=== PATIENT | male | born 1945 | race Two or more races ===

== ENCOUNTER 2016-06-25 10:26 | Inpatient (IN) | payer OTHER ==
--- NOTE | 2016-06-25 10:46 | CPEKG ---
Heart Rate: 130 RR Interval: 462 P-R Interval: 108 QRSD Interval: 86 QT Interval: 320 QTC Interval: 471 P [place]: 148 QRS [place]: -17 T Wave [place]: 42 EKG Severity - BORDERLINE ECG - EKG Impression: ATRIAL FLUTTER WITH 2:1 BLOCK EKG Impression: BORDERLINE LEFT AXIS DEVIATION EKG Impression: BORDERLINE ST DEPRESSION, INFERIOR LEADS Electronically Signed By: David Lechuga 25-Jun-2016 14:14:26
[2016-06-25] MEDS ORDERED: NS 1,000 ML IV ONE (11:09)
[2016-06-25 11:18] LABS: % IMMATURE GRANULYOCYTES 0.5 % (0.0-1.1); ABSOLUTE IMMATURE GRANULOCYTES 0.03 10^3/uL (0.00-0.10); ADD DIFF? NO; ADD MORPH? NO; ADD SCAN? NO; ATYPICAL LYMPHOCYTE FLAG 20 (0-99); FRAGMENT RBC FLAG 0 (0-99); HEMATOCRIT 44.9 % (40.0-51.0); HEMOGLOBIN 15.2 g/dL (13.7-17.5); LEFT SHIFT FLG 0 (0-99); LIPEMIA HEMOLYSIS FLAG 90 (0-99); MEAN CELL HEMOGLOBIN 30.8 pg (27.9-34.1); MEAN CELL HEMOGLOBIN CONCENTR. 33.9 g/dL (32.4-36.7); MEAN CELL VOLUME 90.9 fL (81.5-99.8); MEAN PLATELET VOLUME 8.3 fL (8.7-11.7); PLATELET CLUMPS FLAG 0 (0-99); PLATELET COUNT 406 10^3/uL (150-400); RED BLOOD CELL COUNT 4.94 10^6/uL (4.40-6.38); RED CELL DISTRIBUTION WIDTH 12.7 % (11.5-15.2)
--- NOTE | 2016-06-25 11:20 | UCPHY ---
H & P Patient Type: New Time Seen by Provider: 06/25/16 10:51 HPI/ROS: Chief Complaint: Syncope, rapid heart rate HPI: 71-year-old male with no significant medical problems is being sent in from his doctor for a rapid heart rate. Patient states that he has been feeling unwell for a couple weeks. Was diagnosed with strep throat 10 days ago and was prescribed amoxicillin. He has been feeling better but yesterday was feeling weak. States he had 3-4 episodes where he "blacked out" with a complete loss of consciousness. He went to see his physician today was noted to be in a narrow complex tachycardia rate of 130. Patient denies any chest pain, shortness of breath or palpitations. States that he feels fine right now. No nausea or vomiting. No fevers or chills. No cough. Denies past medical history. Takes no medications. No allergies to medications. Does drink coffee multiple cups daily. Did also drink 2 beers last night. ROS: 10 point Review of Systems is negative except as noted in the HPI. PMH: None Past medical history: None Medications: No known drug allergies Social History: No smoking, occasional alcohol, no recreational drug use Family History: non-contributory Physical Exam: Gen: Awake, Alert, No Distress HEENT: Nose: no rhinorrhea Eyes: PERRLA, EOMI Mouth: Moist mucosa Neck: Supple, no JVD Chest: nontender, lungs clear to auscultation Heart: S1, S2 normal, tachycardic, regular Abd: Soft, non-tender, no guarding Back: no CVA tenderness, no midline tenderness Ext: no edema, non-tender Skin: no rash Neuro: CN II-XII intact, Sensation grossly intact, Strength 5/5 in bilateral upper and lower extremities - Family History Significant Family History: No pertinent family hx Constitutional: Initial Vital Signs Temperature (C) 37 C 06/25/16 10:30 Heart Rate 131 H 06/25/16 10:30 Respiratory Rate 16 06/25/16 10:30 Blood Pressure 119/86 H 06/25/16 10:30 O2 Sat (%) 91 L 06/25/16 10:30 O2 Delivery Mode Room Air Allergies/Adverse Reactions: No Known Allergies Allergy (Unverified 06/25/16 11:23) Home Medications: Medication Instructions Recorded NK [No Known Home Meds] 06/25/16 Medical Decision Making - Diagnostics EKG Interpretation: ECG time:10:44 narrow complex regular tachycardia with a rate of 130. There appear to be P-waves with a rate of 250 which march out in leads V1, V2, lead 3. Normal axis. Mild ST depression in lateral leads. Impression: Atrial flutter with a 2-1 block. Imaging: Chest x-ray: Impression: 1. Early or impending CHF. 2. COPD 3. Likely a benign right pulmonary nodule. If there are any old outside chest x- rays, we would be happy to review them. If not, recommend follow-up chest x-ray in one year to ensure stability. Dictated By: Keith Gomez MD ED Course/Re-evaluation: Patient's electrolytes are okay. ECG shows atrial flutter with a 2-1 av block. Patient's blood pressure is fine. Is currently without complaints. I have discussed Elin Delgado, hospitalist. They will be happy to admit the patient to the PCU once he is rate controlled. Patient will be admitted under Dr. Merino. Patient will need to be transferred to the ER where they can affectively rate control on prior to admission. I have discussed with Dr. Wolf, ED physician. He will accept the patient transfer to the ED where they will rate control. Once this is achieved patient will be admitted to the PCU. - Data Points Laboratory Results: Laboratory Results 06/25/16 10:50 06/25/16 10:50 06/25/16 06/25/16 06/25/16 10:50 10:50 10:50 WBC 6.48 10^3/uL 10^3/uL (3.80-9.50) RBC 4.94 10^6/uL 10^6/uL (4.40-6.38) Hgb 15.2 g/dL g/dL (13.7-17.5) Hct 44.9 % % (40.0-51.0) MCV 90.9 fL fL (81.5-99.8) MCH 30.8 pg pg (27.9-34.1) MCHC 33.9 g/dL g/dL (32.4-36.7) RDW 12.7 % % (11.5-15.2) Plt Count 406 10^3/uL H 10^3/uL (150-400) MPV 8.3 fL L fL (8.7-11.7) Neut % (Auto) 54.1 % % (39.3-74.2) Lymph % (Auto) 31.2 % % (15.0-45.0) [place] % (Auto) 11.0 % % (4.5-13.0) Eos % (Auto) 2.3 % % (0.6-7.6) Baso % (Auto) 0.9 % % (0.3-1.7) Nucleat RBC Rel Count 0.0 % % (0.0-0.2) Absolute Neuts (auto) 3.51 10^3/uL 10^3/uL (1.70-6.50) Absolute Lymphs (auto) 2.02 10^3/uL 10^3/uL (1.00-3.00) Absolute Monos (auto) 0.71 10^3/uL 10^3/uL (0.30-0.80) Absolute Eos (auto) 0.15 10^3/uL 10^3/uL (0.03-0.40) Absolute Basos (auto) 0.06 10^3/uL 10^3/uL (0.02-0.10) Absolute Nucleated RBC 0.00 10^3/uL 10^3/uL (0-0.01) Immature Gran % 0.5 % % (0.0-1.1) Immature Gran # 0.03 10^3/uL 10^3/uL (0.00-0.10) D-Dimer 0.45 ug/mLFEU ug/mLFEU (0.00-0.50) Sodium 141 mEq/L mEq/L (134-144) Potassium 4.5 mEq/L mEq/L (3.5-5.2) Chloride 105 mEq/L mEq/L (97-110) Carbon Dioxide 21 mEq/l L mEq/l (22-31) Anion Gap 15 mEq/L mEq/L (8-16) BUN 12 mg/dL mg/dL (7-23) Creatinine 0.8 mg/dL mg/dL (0.7-1.3) Estimated GFR > 60 Glucose 78 mg/dL mg/dL (70-100) Calcium 9.0 mg/dL mg/dL (8.5-10.4) Total Bilirubin 0.5 mg/dL mg/dL (0.1-1.4) Conjugated Bilirubin 0.3 mg/dL mg/dL (0.0-0.5) Unconjugated Bilirubin 0.2 mg/dL mg/dL (0.0-1.1) AST 20 IU/L IU/L (17-59) ALT 29 IU/L IU/L (21-72) Alkaline Phosphatase 59 IU/L IU/L (38-126) Troponin I < 0.012 ng/mL ng/mL (0-0.034) Total Protein 6.4 g/dL g/dL (6.3-8.2) Albumin 3.4 g/dL L g/dL (3.5-5.0) Lipase 86.0 IU/L IU/L (23-300) Medications Given: Discontinued Medications Sodium Chloride (Ns) 1,000 mls @ 0 mls/hr IV ONCE ONE PRN Reason: Wide Open Stop: 06/25/16 11:10 Last Admin: 06/25/16 11:05 Dose: 1,000 mls Diltiazem HCl 125 mg/ Dextrose 125 mls @ 0 mls/hr IV EDNOW ONE; As Directed PRN Reason: Protocol Stop: 06/25/16 13:30 Last Admin: 06/25/16 13:51 Dose: 125 mls Departure - Departure Disposition: [facility] Inpatient Acute Clinical Impression: Atrial flutter, Syncope Condition: Fair - PQRS PQRS Measurement: 134: Depression screening and followup, PRIME MD-PHQ2 (12 years and older) Over the last 2 weeks, how often have you been bothered by any of the following problems? 1. Feeling down, depressed, or hopeless? 2. Little interest or pleasure in doing things? Patient answered no to both 1 and 2 130: Documentation of medications. Reviewed all patient medications, doses, route and frequency. 226: Do you smoke? No. 47: 65 and older: Advanced care planning. Patient designates surrogate decision maker as daughter. 51: 18 years old and older with diagnosis of COPD, spirometry performance. Patient has no history of COPD 52: 18 years old and older with COPD and symptoms of COPD or FEV1<60% predicted prescribed a B Agonist. Spirometry not performed; equipment not available.
[2016-06-25 11:43] LABS: TROPONIN I < 0.012 ng/mL (0-0.034)
[2016-06-25 12:03] LABS: ALANINE AMINOTRANSFERASE 29 IU/L (21-72); ALBUMIN 3.4 g/dL (3.5-5.0); ALKALINE PHOSPHATASE 59 IU/L (38-126); ASPARTATE AMINOTRANSFERASE 20 IU/L (17-59); BILIRUBIN,TOTAL 0.5 mg/dL (0.1-1.4); BILIRUBIN-CONJUGATED 0.3 mg/dL (0.0-0.5); BILIRUBIN-UNCONJUGATED 0.2 mg/dL (0.0-1.1); CARBON DIOXIDE 21 mEq/l (22-31); CHLORIDE 105 mEq/L (97-110); CREATININE 0.8 mg/dL (0.7-1.3); GLOMERULAR FILTRATION RATE > 60; GLUCOSE 78 mg/dL (70-100); SODIUM 141 mEq/L (134-144); TOTAL PROTEIN 6.4 g/dL (6.3-8.2)
[2016-06-25 12:11] LABS: ANION GAP 15 mEq/L (8-16); POTASSIUM 4.5 mEq/L (3.5-5.2)
[2016-06-25] MEDS ORDERED: DILTIAZEM 125 MG in D5W 125 ML IV ONE (13:29)
--- NOTE | 2016-06-25 13:43 | EDPHY ---
H & P Time Seen by Provider: 06/25/16 10:51 HPI/ROS: CHIEF COMPLAINT: Atrial flutter HPI: The patient is a 71-year-old male who was evaluated at the [facility] earlier today. Apparently the patient had several syncopal episodes yesterday while at work. He arrives to [facility] to tachycardic and was found to be in atrial flutter. Patient was transferred to the ER for further workup. On my evaluation, patient denies chest pain or shortness of breath. He denies any trauma. REVIEW OF SYSTEMS: Aside from elements discussed in the HPI, a comprehensive 10-point review of systems was reviewed and is negative. PMH: No known cardiac disease or history of arrhythmia. SOCIAL HISTORY: Patient works in construction. Had a few alcoholic drinks yesterday. PHYSICAL EXAM: General:Patient is alert, in no acute distress. ENT:Eyes are normal to inspection. ENT inspection normal. Neck: Normal inspection. Full range of motion. Respiratory:No respiratory distress. Breath sounds normal bilaterally. Cardiovascular: Tachycardic rate, regular rhythm. Strong peripheral pulses. Abdomen:The abdomen is nontender to palpation. There are no peritoneal signs. There are normal bowel sounds. Back: Normal to inspection. No tenderness to palpation. Skin: Normal color. No rash. Warm and dry. Extremities: Normal appearance. Full range of motion. Neuro: Oriented x3. Normal motor function. Normal sensory function. Smoking Status: Never smoked Constitutional: Initial Vital Signs Temperature (C) 37 C 06/25/16 10:30 Heart Rate 131 H 06/25/16 10:30 Respiratory Rate 16 06/25/16 10:30 Blood Pressure 119/86 H 06/25/16 10:30 O2 Sat (%) 91 L 06/25/16 10:30 O2 Delivery Mode Room Air Allergies/Adverse Reactions: No Known Allergies Allergy (Unverified 06/25/16 11:23) Home Medications: Medication Instructions Recorded NK [No Known Home Meds] 06/25/16 Medical Decision Making ED Course/Re-evaluation: This patient arrives in atrial flutter with a controlled rate of approximately 130 beats per minute. He is having no chest pain and his blood pressure stable. I think his history of multiple syncopal episodes yesterday's concerning and certainly the patient requires admission. I have started diltiazem drip and will defer further workup and treatment to the hospitalist/ cardiology services. - Data Points Laboratory Results: Laboratory Results 06/25/16 10:50 06/25/16 10:50 06/25/16 06/25/16 06/25/16 10:50 10:50 10:50 WBC 6.48 10^3/uL 10^3/uL (3.80-9.50) RBC 4.94 10^6/uL 10^6/uL (4.40-6.38) Hgb 15.2 g/dL g/dL (13.7-17.5) Hct 44.9 % % (40.0-51.0) MCV 90.9 fL fL (81.5-99.8) MCH 30.8 pg pg (27.9-34.1) MCHC 33.9 g/dL g/dL (32.4-36.7) RDW 12.7 % % (11.5-15.2) Plt Count 406 10^3/uL H 10^3/uL (150-400) MPV 8.3 fL L fL (8.7-11.7) Neut % (Auto) 54.1 % % (39.3-74.2) Lymph % (Auto) 31.2 % % (15.0-45.0) [place] % (Auto) 11.0 % % (4.5-13.0) Eos % (Auto) 2.3 % % (0.6-7.6) Baso % (Auto) 0.9 % % (0.3-1.7) Nucleat RBC Rel Count 0.0 % % (0.0-0.2) Absolute Neuts (auto) 3.51 10^3/uL 10^3/uL (1.70-6.50) Absolute Lymphs (auto) 2.02 10^3/uL 10^3/uL (1.00-3.00) Absolute Monos (auto) 0.71 10^3/uL 10^3/uL (0.30-0.80) Absolute Eos (auto) 0.15 10^3/uL 10^3/uL (0.03-0.40) Absolute Basos (auto) 0.06 10^3/uL 10^3/uL (0.02-0.10) Absolute Nucleated RBC 0.00 10^3/uL 10^3/uL (0-0.01) Immature Gran % 0.5 % % (0.0-1.1) Immature Gran # 0.03 10^3/uL 10^3/uL (0.00-0.10) D-Dimer 0.45 ug/mLFEU ug/mLFEU (0.00-0.50) Sodium 141 mEq/L mEq/L (134-144) Potassium 4.5 mEq/L mEq/L (3.5-5.2) Chloride 105 mEq/L mEq/L (97-110) Carbon Dioxide 21 mEq/l L mEq/l (22-31) Anion Gap 15 mEq/L mEq/L (8-16) BUN 12 mg/dL mg/dL (7-23) Creatinine 0.8 mg/dL mg/dL (0.7-1.3) Estimated GFR > 60 Glucose 78 mg/dL mg/dL (70-100) Calcium 9.0 mg/dL mg/dL (8.5-10.4) Total Bilirubin 0.5 mg/dL mg/dL (0.1-1.4) Conjugated Bilirubin 0.3 mg/dL mg/dL (0.0-0.5) Unconjugated Bilirubin 0.2 mg/dL mg/dL (0.0-1.1) AST 20 IU/L IU/L (17-59) ALT 29 IU/L IU/L (21-72) Alkaline Phosphatase 59 IU/L IU/L (38-126) Troponin I < 0.012 ng/mL ng/mL (0-0.034) Total Protein 6.4 g/dL g/dL (6.3-8.2) Albumin 3.4 g/dL L g/dL (3.5-5.0) Lipase 86.0 IU/L IU/L (23-300) Medications Given: Discontinued Medications Sodium Chloride (Ns) 1,000 mls @ 0 mls/hr IV ONCE ONE PRN Reason: Wide Open Stop: 06/25/16 11:10 Last Admin: 06/25/16 11:05 Dose: 1,000 mls Diltiazem HCl 125 mg/ Dextrose 125 mls @ 0 mls/hr IV EDNOW ONE; As Directed PRN Reason: Protocol Stop: 06/25/16 13:30 Last Admin: 06/25/16 13:51 Dose: 125 mls Departure - Departure Disposition: [facility] Inpatient Acute Clinical Impression: Atrial flutter, Syncope Condition: Fair
[2016-06-25] MEDS ORDERED: DILTIAZEM 25 MG/5 ML VIAL IVP ONE (15:30)
[2016-06-25] MEDS ORDERED: ONDANSETRON 4 MG/2 ML VIAL IVP PRN (15:54)
[2016-06-25] MEDS ORDERED: oxyCODONE IR 5 MG TAB PO PRN (15:54)
[2016-06-25] MEDS ORDERED: TEMAZEPAM 15 MG CAP PO PRN (15:54)
[2016-06-25] MEDS ORDERED: ONDANSETRON DISINTEGRATING 4 MG TAB PO PRN (15:54)
[2016-06-25] MEDS ORDERED: ACETAMINOPHEN 325 MG TAB PO PRN (15:54)
[2016-06-25] MEDS ORDERED: ENOXAPARIN 60 MG/0.6 ML SYR SC SCH (16:00)
--- NOTE | 2016-06-25 16:37 | ECHO ---
[id number] + + [address] : : [place] [address] : : [phone] + + Adult Echocardiographic Report + --------+ :Name: NEFTALY ACEVES Juan Date: 06/25/2016 03:46 PM BP: 106/60 mm Hg : : Hospital Admission Number: [id number] Locat ion: 201: :: 1945 Gender: Male Height: 67 in : :Age: 71 yrs Race: [facility] Weight: 155 l b : :Reason For Study: atrial flutter : : BSA: 1.8 mete rs2 : :History: Aflutter;syncope;strep infection : + --------+ MMode/2D Measurements \T\ Calculations IVSd: 0.89 cm RVDd: 4.5 cm FS: 13.5 % Ao root diam: LVPWd: 1.0 cm LVIDd: 4.8 cm EDV(Teich): 4.0 cm LVIDs: 4.1 cm 105.6 ml LA dimension: ESV(Teich): 4.3 cm 75.1 ml EF(Teich): 28.9 % LVLd ap4: 9.0 cm SV(MOD-sp4): EDV(MOD-sp4): 55.0 ml 157.0 ml LVLs ap4: 8.0 cm ESV(MOD-sp4): 102.0 ml EF(MOD-sp4): 35.0 % Normal Measurement Values: + + :LVIDd (3.5-5.7cm) IVSd (0.6-1.1cm) LVPWd (0.6-1.1cm) Aortic Root (2.0-3.7cm)Left Atrium (1.5-4.0cm): :LV Vol(d) (76-115ml) LV Vol(s) (29-48ml) Ejec Fraction (50-65%)PV Abdoul (0.6- 1.2m/s) TV Abdoul (0.4-1.0m/s) : :MV E Abdoul (0.8-1.0m/s)MV A Abdoul (0.3-1.0m/s)LVOT Abdoul (0.7-1.2m/s) Asc Ao Abdoul ( 0.9-1.8m/s) : + + Doppler Measurements \T\ Calculations Ao V2 max: AI max abdoul: LV V1 max: PA V2 max: 122.7 cm/sec 386.1 cm/sec 107.1 cm/sec 84.7 cm/sec Ao max P.0 mmHgAI max P.6 mmHg LV V1 max PG: PA max PG: AI dec slope: 4.6 mmHg 3.0 mmHg 111.1 cm/sec2 AI P1/2t: 1018 msec TR max abdoul: 262.8 cm/sec TR max P.6 mmHg RAP systole: 5.0 mmHg RVSP(TR): 32.6 mmHg Left Ventricle The left ventricle is normal in size. There is normal left ventricular wall thickness. Left ventricular systolic function is mild to moderately reduced. Ejection Fraction = 35-40%. There is mild to moderate global hypokinesis of the left ventricle. Right Ventricle The right ventricle is mildly dilated. The right ventricular systolic function is borderline reduced. Atria The left atrium is borderline dilated. The right atrium is borderline dilated. The atrial septum is aneurysmal. A patent foramen ovale is suspected. Mitral Valve The mitral valve is normal in structure and function. There is no mitral valve stenosis. There is mild mitral regurgitation. Tricuspid Valve The tricuspid valve is normal in structure and function. There is no tricuspid stenosis. There is mild tricuspid regurgitation. Right ventricular systolic pressure is 33mmHg. Aortic Valve The aortic valve is trileaflet. There is no aortic stenosis. Mild aortic regurgitation. Pulmonic Valve The pulmonic valve is normal in structure and function. Mild pulmonic valvular regurgitation. Great Vessels The aortic root is normal size. Pericardium/Pleural There is no pericardial effusion. Conclusion A two-dimensional transthoracic echocardiogram with M-mode and Doppler was performed. The left ventricle is normal in size. Left ventricular systolic function is mild to moderately reduced. Ejection Fraction = 35-40%. There is mild to moderate global hypokinesis of the left ventricle. The right ventricle is mildly dilated. The right ventricular systolic function is borderline reduced. The left atrium is borderline dilated. The right atrium is borderline dilated. The atrial septum is aneurysmal. A patent foramen ovale is suspected. There is mild mitral regurgitation. There is mild tricuspid regurgitation. Right ventricular systolic pressure is 33mmHg. Mild aortic regurgitation. Mild pulmonic valvular regurgitation. Final Reading Physician: Ekta Estrada signed on 06/25/2016 04:36 PM Ordering Physician: Katrina Chen Performed By: Allison Patrick
--- NOTE | 2016-06-25 16:43 | GHP ---
[f rep st] HISTORY AND PHYSICAL DATE OF ADMISSION: 06/25/2016 CHIEF COMPLAINT: Presyncopal symptoms. HISTORY OF PRESENT ILLNESS: The patient is a 71-year-old male, who reports no significant past medical history other than a recent strep throat illness, who presents to the emergency department via his primary care office with an elevated heart rate. He recently returned from [facility] a couple of weeks ago. He then developed fevers and sore throat with a productive cough. A week into these symptoms, he sought care at the [facility], where he was diagnosed with strep throat and treated with amoxicillin. He took 1 week of the amoxicillin but continued to feel poorly. He has had 3 separate episodes of severe presyncopal symptoms, where he suddenly feels lightheaded and dizzy, as if he may pass out. He has not actually lost consciousness. These episodes last approximately 1 minute, and they are not associated with chest pain, shortness of breath, or heart palpitations. However, he has had decreased energy, and upon evaluation by his primary care physician today, he was found to have a heart rate of 130 and was sent to Urgent Care. In Urgent Care, his EKG appeared consistent with a 2:1 A flutter. He was sent to the emergency department, where he was then admitted to the hospital after being placed on an IV diltiazem drip. Upon my evaluation, the patient denies headaches, dizziness, lightheadedness, chest pain, or shortness of breath or palpitations. He also denies any abdominal pain, nausea, vomiting, diarrhea, or changes in his bowel or bladder habits. His fevers and sore throat have mostly resolved. He is left with a lingering cough but overall feels fairly well. PAST MEDICAL HISTORY: Recent strep throat. SURGICAL HISTORY: None. MEDICATIONS: None. ALLERGIES: None. SOCIAL HISTORY: The patient lives independently with his . He is a nonsmoker but has a 51-dayy-wlmg tobacco history. He quit approximately 25 years ago. He reports daily alcohol, 3 to 4 beers in the evening, though he has gone several weeks without alcohol recently due to his illness. He denies any history of alcohol withdrawal symptoms. FAMILY HISTORY: Reviewed, is noncontributory. REVIEW OF SYSTEMS: A 10-point review of systems was performed and is negative except as per HPI. OBJECTIVE: VITAL SIGNS: Temperature is 36.7, blood pressure 113/81, heart rate 131, although by the end of my interview, his heart rate is down into the 80s after receiving an IV diltiazem bolus, respiratory rate 17, he is 95% on room air. GENERAL: The patient is awake, alert, oriented, in no acute distress. HEENT: Head is atraumatic, normocephalic. Pupils equal, round, reactive to light. Extraocular muscles are intact. Oropharynx is clear. Mucous members are moist. NECK: Supple. There is no JVD. HEART: Auscultates to a bigeminy-type rhythm, though is irregular without murmur. LUNGS: Clear to auscultation bilaterally. ABDOMEN: Soft, nondistended, nontender. Normoactive bowel sounds. EXTREMITIES: Without cyanosis, clubbing , or edema. NEUROLOGIC: Grossly nonfocal. EKG: EKG from the Urgent Care is consistent with A flutter with 2:1 block, some mild ST depression in the lateral leads. IMAGING: Chest x-ray is personally reviewed, shows findings consistent possibly with early heart failure. Lung swanson are hyperexpanded. His right costophrenic angle appears clear. His left costophrenic angle is obscured and not in full field of view. His heart size appears relatively normal. Radiology also notes a benign right pulmonary nodule. LABORATORY DATA: CBC reveals a platelet count of 406. D-dimer is negative. Troponin is negative. Complete metabolic panel shows normal electrolytes though CO2 is slightly low at 21. LFTs are normal. Lipase is normal. INR is pending. ASSESSMENT AND PLAN: The patient is a 71-year-old male who has been otherwise healthy, save a recent strep throat illness, who presents to the emergency department with elevated heart rate. 1. Atrial flutter. New diagnosis. An echocardiogram is being performed at this time. Will add on TSH and check an INR. His initial troponin is negative. Will trend his troponins. D dimer is negative. He was started on IV diltiazem drip in the ED, though his heart rate was still 130 upon my evaluation. He was given a 10 mg IV diltiazem bolus, and his rate is better controlled. He has a CHADS-VASc score of 1 based on age. He will be anticoagulated with Lovenox for tonight. I discussed the case with Cardiology, who will formally consult. Given his recurrent presyncopal symptoms, if he does not convert, consideration may be given to cardioversion. Will make him NPO at midnight just in case. Continue IV diltiazem drip for now and may be able to transition to oral tomorrow. 2. Presyncopal symptoms. Suspect cardiac etiology. He has had 3 episodes of near-syncope, possibly in the setting of rapid atrial flutter. Query if he may have become hypotensive during these episodes. Monitor on telemetry. The patient may be a candidate for long-term site monitor at discharge. 3. Strep throat. He has completed a 1-week course of amoxicillin, and his symptoms are resolved. He is afebrile here. At this time, no further treatment is indicated. It does not seem like a long enough time course for him to have developed rheumatic heart disease though an echocardiogram is pending. 4. Daily alcohol use. Per the patient's report, he has no history of withdrawal. Will watch for signs and symptoms of withdrawal and initiate CIWA protocol, if indicated. 5. DVT prophylaxis. Patient will be anticoagulated with Lovenox. 6. Code status. Patient is full code. 7. Disposition. Patient admitted to PCU, observation status. If his flutter issues are not resolved by tomorrow, he may need to be changed to inpatient. /[id number]/MODL MTDD
[2016-06-25 17:21] LABS: TROPONIN I < 0.012 ng/mL (0-0.034)
[2016-06-25 17:23] LABS: INR 1.11 (0.83-1.16); PROTIME(PATIENT) 14.2 SEC (12.0-15.0)
[2016-06-25] MEDS: ENOXAPARIN 80 MG/0.8 ML SYR SC SCH (17:42)
[2016-06-25] MEDS ORDERED: DILTIAZEM 125 MG in D5W 125 ML IV SCH (22:30)
[2016-06-26 05:11] LABS: INR 1.09 (0.83-1.16)
[2016-06-26 05:40] LABS: ANION GAP 9 mEq/L (8-16); CALCIUM 8.5 mg/dL (8.5-10.4); CARBON DIOXIDE 23 mEq/l (22-31); CHLORIDE 109 mEq/L (97-110); CREATININE 0.7 mg/dL (0.7-1.3); GLOMERULAR FILTRATION RATE > 60; GLUCOSE 74 mg/dL (70-100); POTASSIUM 4.4 mEq/L (3.5-5.2); SODIUM 141 mEq/L (134-144)
[2016-06-26] MEDS: ENOXAPARIN 80 MG/0.8 ML SYR SC SCH (05:57)
--- NOTE | 2016-06-26 07:56 | CPEKG ---
Heart Rate: 100 RR Interval: 600 QRSD Interval: 96 QT Interval: 420 QTC Interval: 542 QRS [place]: -46 T Wave [place]: 4 EKG Severity - ABNORMAL ECG - EKG Impression: ATRIAL FLUTTER, A-RATE 250 EKG Impression: LEFT AXIS DEVIATION EKG Impression: NONSPECIFIC T ABNORMALITIES, INFERIOR LEADS EKG Impression: BORDERLINE PROLONGED QT INTERVAL EKG Impression: NO SIGNIFICANT CHANGE SINCE JUNE 25, 2016 Electronically Signed By: Ryan Saldivar 26-Jun-2016 08:24:28
--- NOTE | 2016-06-26 09:13 | SOAPPROG ---
SOAP Progress Note Assessment/Plan: Assessment: Cardiology consult performed and dictated. 62 y/o man with near syncope, daily heavy ETOH use found to be in aflutter at 150bpm and LVEF 37%. I suspect his LVEF is down from combination of tachy induced, chronic ETOH use and post viral. No suspicion of obstructive CAD but needs to evaluate for CAD with cardiolite in near future (next 2-4 wks). REC: 1)DAYANA/CV this AM to restore NSR. 2)Eliquis 5mg PO BID 3)Coreg and Lisinopril after convert to NSR 4)probably home tuesday 5)f/u CHF-[place] 6)ETT cardiolite probably as out-pt in next 2-4 wks. 7)eliminate ETOH or decrease to < one beer per day. 06/26/16 09:10 Objective: Vital Signs Temp Pulse Resp BP Pulse Ox 36.8 C 110 H 14 94/56 L 92 06/26/16 07:58 06/26/16 07:58 06/26/16 07:58 06/26/16 07:58 06/26/16 07:58 Laboratory Results 06/26/16 03:46 06/25/16 06/26/16 06/27/16 05:59 05:59 05:59 Intake Total 2355 Output Total 250 Balance 2105 PT 14.0 SEC (12.0-15.0) 06/26/16 03:46 INR 1.09 (0.83-1.16) 06/26/16 03:46 ICD10 Worksheet Patient Problems: Problems Problem Status Onset Atrial flutter Acute Syncope Acute
[2016-06-26] MEDS ORDERED: MIDAZOLAM 2 MG/2 ML VIAL IVP ONE (09:14)
[2016-06-26] MEDS ORDERED: fentaNYL 100 MCG/2 ML INJ IVP ONE (09:14)
[2016-06-26] MEDS ORDERED: NS 500 ML IV ONE (09:14)
[2016-06-26] MEDS ORDERED: PROPOFOL 200 MG/20 ML VIAL IVP ONE (09:14)
[2016-06-26] MEDS ORDERED: PHENYLEPHRINE HCL 100 MCG/ML SYR ONE (10:16)
[2016-06-26] MEDS ORDERED: LIDOCAINE 2% 5 ML SDV ONE (10:16)
[2016-06-26] MEDS ORDERED: PROPOFOL/EMULSION 500 MG/50 ML BOTTLE IV ONE (10:16)
--- NOTE | 2016-06-26 10:19 | HOSPPROG ---
Hospitalist Progress Note Assessment/Plan: 71-year-old healthy man presents with near syncopal symptoms and is found to be in a fib flutter with rapid ventricular response and a cardiomyopathy of unknown duration. He does have a history of alcohol use and recent viral illness which could be contributing to his current symptoms. # AFib/flutter, echocardiogram reviewed and reviewed with Cardiology. Likely multifactorial including possible viral illness, alcohol use and cannot rule out coronary artery disease * DAYANA cardioversion this morning * Adjust medications to include DANIEL-inhibitor and beta-twan * Anticoagulation with Eliquis per Cardiology * Monitor overnight and discharge in a.m. if continues to be stable after cardioversion # syncope likely related to above, monitor # alcohol use. Patient admits to drinking up to 5 drinks per day, discussed alcohol use with patient and he does plan on cutting down. is at the bedside. # patient requiring IV medication to control heart rate as well as new systolic heart failure noted on echocardiogram will need additional midnight stay for medication management and cardioversion. Subjective: Patient new to [place], chart reviewed discussed with Cardiology. His AFib is relatively asymptomatic although he continues to have intermittent episodes of tachycardia. He did have some near-syncope prior to admission. Objective: Vital Signs Temp Pulse Resp BP Pulse Ox 36.8 C 110 H 14 94/56 L 92 06/26/16 07:58 06/26/16 07:58 06/26/16 07:58 06/26/16 07:58 06/26/16 07:58 Laboratory Results 06/26/16 03:46 06/25/16 06/26/16 06/27/16 05:59 05:59 05:59 Intake Total 2355 Output Total 250 Balance 2105 PT 14.0 SEC (12.0-15.0) 06/26/16 03:46 INR 1.09 (0.83-1.16) 06/26/16 03:46 - Physical Exam Constitutional: no apparent distress, not in pain Eyes: PERRL, anicteric sclera, EOMI Ears, Nose, Mouth, Throat: moist mucous membranes, hearing normal, ears appear normal Cardiovascular: irregularly irregular, No edema Respiratory: no respiratory distress, no rales or rhonchi, clear to auscultation Gastrointestinal: normoactive bowel sounds, soft, non-tender abdomen, no palpable masses Genitourinary: no bladder fullness Skin: warm, normal color Musculoskeletal: no muscle tenderness, normal joint ROM Neurologic: AAOx3, sensation intact bilaterally, No facial droop Psychiatric: interacting appropriately, not anxious, not encephalopathic ICD10 Worksheet Patient Problems: Problems Problem Status Onset Atrial flutter Acute Syncope Acute
--- NOTE | 2016-06-26 10:35 | GCON ---
[f rep st] CONSULTATION CARDIOLOGY CONSULT. DATE OF CONSULTATION: 06/26/2016 REASON FOR CONSULTATION: Evaluate gentleman with near syncope and atrial flutter with rapid ventricular rate and new onset systolic heart failure. HISTORY OF PRESENT ILLNESS: I was asked by Dr. Zoey Merino to consult for the above reasons. The patient is a 71 year-old gentleman with no previous cardiac problems. He does drink 4-5 beers a day. He was in his normal state of health until 4 weeks ago, when he was returning from a vacation in [facility], where he got a strep throat URI. He felt his heart racing slightly for the last month. Four days ago, he had an episode of near syncope and tiredness working in his shed. It occurred yesterday again, and he went to the emergency room for evaluation, and was found to be in atrial flutter with a ventricular rate of 150 beats per minute. An echo demonstrated an LVEF of 37% with mild valvular abnormalities and possible PFO. He denies chest pain, PND or orthopnea. He usually can walk 1-2 miles without difficulty, and works manual labor doing cement laying. He does not have a history of hypertension, diabetes, stroke or previous heart failure before this admission. He has had no previous cardiac testing before this admission. PAST MEDICAL HISTORY: New onset atrial flutter, new onset heart failure, and recent URI, possibly strep throat. PAST SURGICAL HISTORY: None. CURRENT MEDICATIONS: Diltiazem drip and Lovenox 70 mg subcu b.i.d. ALLERGIES: No known drug allergies. SOCIAL HISTORY: Patient is . He drinks 4-5 beers per day. He quit tobacco many years ago and has a 20 pack-year smoking history. 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 FAMILY HISTORY: Unremarkable for premature coronary artery disease or heart failure. REVIEW OF SYSTEMS: The patient reports no GI bleed symptoms or TIA symptoms. The rest of 10-point review of systems is negative. PHYSICAL EXAM: VITAL SIGNS: Afebrile, pulse 110, and irregular irregular, consistent with atrial flutter. Blood pressure 94/54, respirations 20. Weight 70.8 kg. GENERAL: A normal appearing gentleman, in no acute distress, without chest pain or using accessory respiratory muscles. NECK: Jugular venous pressure to 7 cm. Carotid pulse 2+ bilaterally with no obvious bruits. No thyromegaly noted. LUNGS: Clear to auscultation bilaterally without rales, rhonchi, or wheezing. HEART: Normal PMI. Irregular regular rhythm with no murmurs or S3. ABDOMINAL: Soft, nontender. No guarding or rebound. No ascites. EXTREMITIES: 2+ peripheral pulses including femoral and pedal pulses. No edema noted. MUSCULOSKELETAL: No scoliosis. NEURO: Normal affect and mood. SKIN: No bleeding or cyanosis. Neck, no nuchal rigidity. EKG: Atrial flutter with nonspecific T-wave flattening. LABS: White count 6.5, hematocrit 45, platelets 406,000, MCV 91. INR 1.09. Sodium 141, potassium 4.4, chloride 109, bicarb 23, BUN 10, creatinine 0.7, glucose 74. Troponin negative. LFTs within normal limits. TSH 1.9. IMPRESSION AND RECOMMENDATION: A 71 year-old gentleman with near syncope and new onset atrial flutter with rapid ventricular rate. He also has new onset left ventricular dysfunction with an EF of 37%. 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 He does not appear to be having unstable angina and he is relatively euvolemic, with no pulmonary edema. PLAN: 1. We will do a DAYANA cardioversion today in attempts to restore normal sinus rhythm. 2. After successfully converting him back to sinus would start on Eliquis 5 mg b.i.d. 3. After converting him back to sinus rhythm, and hopefully with more blood pressure we will try to introduce low-dose beta twan and DANIEL inhibitor. 4. I feel he probably could go home tomorrow, back in sinus rhythm, as long as he is compensated and normotensive. 5. Would do a treadmill Cardiolite stress test as an outpatient in the next 2- 4 weeks to rule out coronary artery disease. 6. I have discussed with him the need for him to cut back significantly on his alcohol use to less than 1 beer per day, ideally no alcohol. He is willing to do this. /[id number]/MODL MTDD
--- NOTE | 2016-06-26 10:52 | PDTEE1 ---
DAYANA Cardioversion Procedure Indications: Other (atrial flutter) Consent: Signed and in Chart Anticoagulation: Lovenox Procedural Details: Pads were placed in anterior-posterior position. DAYANA probe was advanced and standard images obtained. There is no evidence of left atrial or left atrial appendage thrombus. After DAYANA demonstrated no RAMANA thrombus, AP pads used. 200J synchronized shock. Aflutter at 110bpm to sinus bradycardia at 58bpm. BP 95/55 throughout. Synchronized cardioversion attempt #1: 200J Results: Normal sinus rhythm Conclusions: Successful Cardioversion Patient Problems: Problems Problem Status Onset Atrial flutter Acute Syncope Acute
--- NOTE | 2016-06-26 11:09 | CPEKG ---
Heart Rate: 57 RR Interval: 1053 P-R Interval: 184 QRSD Interval: 96 QT Interval: 464 QTC Interval: 452 P [place]: 25 QRS [place]: 36 T Wave [place]: 50 EKG Severity - ABNORMAL ECG - EKG Impression: SINUS RHYTHM EKG Impression: PROBABLE ANTEROSEPTAL INFARCT, AGE INDETERM EKG Impression: Resolution of atrial flutter since June 26, 2016, 5:23 Electronically Signed By: Ryan Saldivar 27-Jun-2016 12:23:42
--- NOTE | 2016-06-26 11:13 | ECHO ---
[id number] + + [address] : : [facility] [address] : : [phone] + Transesophageal Echocardiographic Report + --------+ :Name: NEFTALY ACEVES Juan Date: 06/26/2016 09:51 AM : : Hospital Admission Number: [id number] Locat ion: 201: :: 1945 Gender: Male : :Age: 71 yrs Race: OTH : :Reason For Study: Atrial flutter : + --------+ Atria Injection of contrast documented an interatrial shunt. A patent foramen ovale is present. No thrombus is detected in the left atrial appendage. Mitral Valve There is mild mitral regurgitation. Tricuspid Valve There is trace tricuspid regurgitation. Aortic Valve Mild to moderate aortic regurgitation. Conclusion A 2D transesophageal echocardiogram with color flow Doppler was performed. 1)Mildly reduced LV systolic function with a LVEF of 35-40%. 2)Mild LAE. 3)No clot or thrombus in any of four cardiac chambers in particular LA appendage. PW velocity in RAMANA 50cm/sec. 4)Small left to right shunting PFO with postive IV bubble study. 5)Mild to moderate AI without . Trileaflet aortic valve. 6)Mild MR without MV prolaps. 7)Mild TR and PI noted. 8)Normal size ascending thoracic aorta (3.3cm) with no dissection flap. 9)No valvular vegetations noted. 10)No atheroma in ascending or descending thoracic aorta. Final Reading Physician: Félix Munoz electronically signed on 06/26/2016 11:12 AM Ordering Physician: Zoey Merino Performed By: Félix Munoz
[2016-06-26] MEDS: LISINOPRIL 5 MG TAB PO SCH (12:09)
[2016-06-26] MEDS: CARVEDILOL 3.125 MG TAB PO SCH (17:56)
[2016-06-26] MEDS: APIXABAN 5 MG TAB PO SCH (20:12)
[2016-06-27 03:22] VITALS: TEMP 98.1
[2016-06-27 04:45] LABS: ANION GAP 7 mEq/L (8-16); CALCIUM 8.8 mg/dL (8.5-10.4); CARBON DIOXIDE 22 mEq/l (22-31); CHLORIDE 108 mEq/L (97-110); CREATININE 0.8 mg/dL (0.7-1.3); GLOMERULAR FILTRATION RATE > 60; GLUCOSE 80 mg/dL (70-100); POTASSIUM 4.4 mEq/L (3.5-5.2); SODIUM 137 mEq/L (134-144)
--- NOTE | 2016-06-27 08:39 | SOAPPROG ---
SOAP Progress Note Assessment/Plan: Assessment: 62 y/o man with near syncope, daily heavy ETOH use found to be in aflutter at 150bpm and LVEF 37%. I suspect his LVEF is down from combination of tachy induced, chronic ETOH use and post viral. No suspicion of obstructive CAD but needs to evaluate for CAD with cardiolite in near future (next 2-4 wks). Now s/ p successful DAYANA and CV to NSR. Tolerating low dose Coreg and Lisinopril and appears euvolemic with no angina. REC: 1)okay to discharge home today on current meds. 2)no ETOH at home. 3)f/u CHF-[facility] with ecg in ten days (my office will call him tommorrow to schedule). 4)ETT cardiolite in 3-4 wks as out-pt. Thanks. Will sign off. 06/27/16 08:36 Subjective: overall he feels stronger than yesterday. Ambulated in his hospital room without CP, SAUCEDA or near syncope. No complaints today. Objective: Vital Signs Temp Pulse Resp BP Pulse Ox 36.7 C 77 17 97/70 L 97 06/27/16 03:20 06/27/16 03:20 06/27/16 03:20 06/27/16 03:20 06/27/16 03:20 Laboratory Results 06/27/16 03:14 06/27/16 03:14 06/26/16 06/27/16 06/28/16 05:59 05:59 05:59 Intake Total 840 Balance 840 PT 14.0 SEC (12.0-15.0) 06/26/16 03:46 INR 1.09 (0.83-1.16) 06/26/16 03:46 Physical Exam - Physical Exam General Appearance: alert EENT: normal ENT inspection Neck: non-tender Respiratory: lungs clear Cardiac/Chest: regular rate, rhythm, systolic murmur, No gallop (1/6 XOCHITL heard) , No JVD Peripheral Pulses: 2+: carotid (R), carotid (L), femoral (R), femoral (L), dorsalis-pedis (R), dorsalis-pedis (L) Abdomen: non-tender, No guarding, No splenomegaly, No ascites Skin: warm/dry Extremities: No pedal edema Neuro/Psych: alert ICD10 Worksheet Patient Problems: Problems Problem Status Onset Atrial flutter Acute Syncope Acute
[2016-06-27 09:34] VITALS: BP 108/78; PULSE 70; RESP 16; O2SAT 90
[2016-06-27] MEDS: LISINOPRIL 5 MG TAB PO SCH (10:02)
[2016-06-27] MEDS: CARVEDILOL 3.125 MG TAB PO SCH (10:03)
[2016-06-27] MEDS: APIXABAN 5 MG TAB PO SCH (10:03)
--- NOTE | 2016-06-27 11:08 | GDS ---
[f rep st] DISCHARGE SUMMARY DIAGNOSES: 1. Atrial fibrillation/flutter, status post cardioversion. 2. Syncope likely related to above. 3. History of alcohol use. Patient working on cutting down. 4. New onset left ventricular dysfunction with an ejection fraction of 37%. PROCEDURES DONE: 1. Echocardiogram, normal left ventricular size, left ventricular systolic function reduced to 35% to 40%, mild global hypokinesis of the left ventricle. 2. Transesophageal echocardiography cardioversion. CONSULTATION: Cardiology, Dr. Félix Munoz. HOSPITAL COURSE: The patient is a healthy 71-year-old man who comes in with a few episodes of synco pe after having an upper respiratory illness. On admission, he was found to be in AFib/flutter with a rapid ventricular response and admitted to the hospital for anticoagulation and rate control. Ca rdiology saw him in consultation and after an echocardiogram was done, revealing a reduced systolic function, he was taken for a DAYANA cardioversion which was successful. He was then started on some me dications including Eliquis for anticoagulation, carvedilol and lisinopril for his systolic dysfunct ion. He tolerated the procedure well. He is tolerating the medications well and is ready to go david e. He has been asymptomatic and no further near syncopal events. CONDITION ON DISCHARGE: Good. PHYSICAL EXAMINATION: VITAL SIGNS: Stable. He is in sinus rhythm with a heart rate of 70, blood p ressure 108/78. He is 90% on room air. GENERAL: He is alert and oriented. HEART: Regular. LUNG S: Clear. EXTREMITIES: Minimal edema. DISCHARGE MEDICATIONS: Please see discharge medication form. FOLLOWUP: Will be with Dr. Félix Munoz as an outpatient, that appointment has been set up already. Total time spent with the patient on the day of discharge and coordination of care is 35 minutes. /[id number]/MODL
--- NOTE | 2016-06-28 08:45 | CPEKG ---
Heart Rate: 75 RR Interval: 800 P-R Interval: 176 QRSD Interval: 96 QT Interval: 404 QTC Interval: 452 P [place]: 6 QRS [place]: 19 T Wave [place]: 39 EKG Severity - NORMAL ECG - EKG Impression: SINUS RHYTHM Electronically Signed By: Tavon Elizalde 28-Jun-2016 08:58:59
== END 2016-06-27 11:20 | disposition home or self-care (01) | DRG 310 ==
LOC: CED 10:26 → INTOOBSV 12:32 → CEDHOLD 12:32 → UNDOADMIN 12:32 → F2W 12:32 → OBSVTOIN 06-26 10:16 → MERGE 06-26 10:16
PROVIDERS: ADMIT Hospitalist; ATTEND Hospitalist
PROC: 5A2204Z Restoration of Cardiac Rhythm, Single (ICD-10-PCS; principal; 2016-06-26)
PROC: B245ZZ4 Ultrasonography of Left Heart, Transesophageal (ICD-10-PCS; principal; 2016-06-26)
DX: I48.91 Unspecified atrial fibrillation (principal); I48.92 Unspecified atrial flutter; Z72.89 Other problems related to lifestyle
CPT/HCPCS: 71020-PO; 80048-PO; 80076-PO; 83690-PO; 84484-PO; 85025-PO; 85378-PO; 96360-PO; G0378; G0463-PO; J1650; J2370; J2704

== ENCOUNTER → 2016-07-05 | Outpatient (CLI) | payer OTHER | LOC: BHFA 08:45 | PROVIDERS: ATTEND Internal Medicine Cardiovascular Disease | DX: I50.21 Acute systolic (congestive) heart failure (principal); I48.92 Unspecified atrial flutter ==